=== PATIENT | male | born 1975 | race Caucasian/White ===

== ENCOUNTER 2020-06-13 04:55 | Emergency (ER) | payer OTHER ==
[~2020-06-13 04:55] MED LIST: ASPIRIN EC81 MG PO; BACTROBAN OINT22 GM EXT; CLARITIN10 MG PO; FUROSEMIDE40 MG PO; JANUVIA100 MG PO; K-DUR TAB 20 M20 MEQ PO; KEFLEX CAP 500500 MG PO; LIPITOR TAB 2020 MG PO; LOPRESSOR 25 MG25 MG PO; PRINIVIL20 MG PO; ZITHROMAX250 MG PO
[2020-06-13 05:49] LABS: HEMOGLOBIN 10.5 gm/dl (14.0-17.5); RED BLOOD COUNT 4.66 M/UL (4.20-5.50); WHITE BLOOD COUNT 7.1 K/UL (4.5-11.0)
[2020-06-13 06:03] LABS: BUN/CREATININE RATIO 12 (0-10)
[2020-06-13] MEDS ORDERED: PROTONIX 40 MG40 M1 PO (10:46)
== END 2020-06-13 11:44 | disposition home or self-care (01) ==
LOC: ER1 04:55
PROVIDERS: Family Medicine
DX: N13.2 Hydronephrosis with renal and ureteral calculous obstruction (principal); R10.13 Epigastric pain; I11.0 Hypertensive heart disease with heart failure; I50.9 Heart failure, unspecified; E11.9 Type 2 diabetes mellitus without complications; E66.01 Morbid (severe) obesity due to excess calories; Z79.899 Other long term (current) drug therapy; Z88.0 Allergy status to penicillin
CPT/HCPCS: 80053; 81001; 82550; 82553; 83690; 83874; 84484; 85025; 93005; 96374; 96375; 99284; J2270; J2405; Q9967

== ENCOUNTER 2020-10-25 10:17 | Inpatient (IN) | payer OTHER ==
[~2020-10-25] VITALS: Ht 177.8 cm; Wt 91.2 kg
[~2020-10-25 10:17] MED LIST changes: +PROTONIX 40 MG40 M1 PO
[2020-10-25 11:14] LABS: HEMOGLOBIN 9.7 gm/dl (14.0-17.5); RED BLOOD COUNT 4.12 M/UL (4.20-5.50); WHITE BLOOD COUNT 6.8 K/UL (4.5-11.0)
[2020-10-26 05:28] LABS: HEMOGLOBIN 8.3 gm/dl (14.0-17.5); WHITE BLOOD COUNT 8.5 K/UL (4.5-11.0)
[2020-10-26 05:48] LABS: RED BLOOD COUNT 3.56 M/UL (4.20-5.50)
--- NOTE | 2020-10-26 15:42 | NUR ---
Patient states he has to sleep in a recliner at home due to soa. He is requesting a hospital bed for home use.
[2020-10-27 05:11] LABS: HEMOGLOBIN 8.5 gm/dl (14.0-17.5); RED BLOOD COUNT 3.66 M/UL (4.20-5.50); WHITE BLOOD COUNT 8.9 K/UL (4.5-11.0)
[2020-10-28 04:29] LABS: HEMOGLOBIN 8.5 gm/dl (14.0-17.5); RED BLOOD COUNT 3.55 M/UL (4.20-5.50)
[2020-10-28 11:15] LABS: ANTISTREPTOLYSIN O AB <20.0 IU/mL (0.0-200.0); COMPLEMENT C3, SERUM 171 mg/dL (82-167); COMPLEMENT C4, SERUM 32 mg/dL (12-38); HBSAG SCREEN Negative (Negative); HEP B CORE AB, TOT Negative (Negative); HEP C VIRUS AB <0.1 (0.0-0.9)
[2020-10-28 14:11] LABS: ANTI-DSDNA ANTIBODIES <1 IU/mL (0-9)
[2020-10-28 15:11] LABS: A/G RATIO 0.6 (0.7-1.7); ALBUMIN 1.9 g/dL (2.9-4.4); ALPHA-1-GLOBULIN 0.5 g/dL (0.0-0.4); GAMMA GLOBULIN 1.1 g/dL (0.4-1.8); GLOBULIN, TOTAL 3.7 g/dL (2.2-3.9); IMMUNOGLOBULIN A, QN, SERUM 375 mg/dL (90-386); IMMUNOGLOBULIN G, QN, SERUM 1101 mg/dL (603-1613); IMMUNOGLOBULIN M, QN, SERUM 70 mg/dL (20-172); M-SPIKE 0.3 g/dL (Not Observed); PROTEIN, TOTAL, SERUM 5.6 g/dL (6.0-8.5)
[2020-10-28 16:11] LABS: ATYPICAL PANCA <1:20 titer (Neg:<1:20); CYTOPLASMIC (C-ANCA) <1:20 titer (Neg:<1:20); PERINUCLEAR (P-ANCA) <1:20 titer (Neg:<1:20)
[2020-10-30 05:15] LABS: HEMOGLOBIN 8.7 gm/dl (14.0-17.5); RED BLOOD COUNT 3.71 M/UL (4.20-5.50); WHITE BLOOD COUNT 6.9 K/UL (4.5-11.0)
[2020-10-31] MEDS ORDERED: HYDRALAZINE HCL50 MG PO (10:52)
[2020-10-31] MEDS ORDERED: BUMETANIDE1 MG PO (10:52)
[2020-10-31] MEDS ORDERED: ISOSORBIDE MONO60 MG PO (10:52)
[2020-10-31] MEDS ORDERED: FERROUS SULFAT325 M2 PO (10:52)
== END 2020-10-31 14:03 | disposition home or self-care (01) | DRG 291 ==
LOC: ER1 10:17 → PROG CARE 12:50 → CDU 12:50 → M/S 12:50 → PROG CARE 14:12 → M/S 10-28 00:35
PROVIDERS: Internal Medicine; Internal Medicine Nephrology; Physician Assistant; ADMIT Family Medicine
PROC: B24BZZ4 Ultrasonography of Heart with Aorta, Transesophageal (ICD-10-PCS; principal; 2020-10-26)
DX: I13.0 Hypertensive heart and chronic kidney disease with heart failure and stage 1 through stage 4 chronic kidney disease, or unspecified chronic kidney disease (principal); I50.33 Acute on chronic diastolic (congestive) heart failure; I16.1 Hypertensive emergency; N17.9 Acute kidney failure, unspecified; L03.116 Cellulitis of left lower limb; L03.115 Cellulitis of right lower limb; Z20.822 Contact with and (suspected) exposure to COVID-19; I89.0 Lymphedema, not elsewhere classified; D47.2 Monoclonal gammopathy; D50.9 Iron deficiency anemia, unspecified; N18.30 Chronic kidney disease, stage 3 unspecified; E66.01 Morbid (severe) obesity due to excess calories; I87.8 Other specified disorders of veins; I07.1 Rheumatic tricuspid insufficiency; D63.1 Anemia in chronic kidney disease; I49.5 Sick sinus syndrome; T44.5X5A Adverse effect of predominantly beta-adrenoreceptor agonists, initial encounter; E11.22 Type 2 diabetes mellitus with diabetic chronic kidney disease; M47.895 Other spondylosis, thoracolumbar region; M47.896 Other spondylosis, lumbar region; I27.20 Pulmonary hypertension, unspecified; E78.5 Hyperlipidemia, unspecified; Z79.82 Long term (current) use of aspirin; Z88.0 Allergy status to penicillin; Z79.4 Long term (current) use of insulin; Z91.14 Patient's other noncompliance with medication regimen; Z74.01 Bed confinement status; Z82.49 Family history of ischemic heart disease and other diseases of the circulatory system; Z68.28 Body mass index [BMI] 28.0-28.9, adult
CPT/HCPCS: 36415; 71045; 77075; 80048; 80053; 80202; 82550; 82553; 82570; 82728; 82784; 82962; 83036; 83520; 83540; 83550; 83880; 83883; 84155; 84156; 84165; 84484; 85025; 85027; 86038; 86060; 86160; 86162; 86225; 86256; 86334; 86335; 86704; 86706; 86708; 86803; 87340; 93005; 96374; 96375; 97110-GP-CQ; 97116-GP-CQ; 97161; 97530-GP-CQ; 99285; J0360; J1205; J1650; J1940; J1956; J3370; J7030; J7070; P9047; U0002

== ENCOUNTER 2020-11-24 12:51 | Emergency (ER) | payer OTHER ==
[~2020-11-24 12:51] MED LIST changes: +BUMETANIDE1 MG PO; +FERROUS SULFAT325 M2 PO; +HYDRALAZINE HCL50 MG PO; +ISOSORBIDE MONO60 MG PO
[2020-11-24 13:55] LABS: RED BLOOD COUNT 4.41 M/UL (4.20-5.50); WHITE BLOOD COUNT 6.5 K/UL (4.5-11.0)
== END 2020-11-24 19:45 | disposition home or self-care (01) ==
LOC: ER1 12:51
PROVIDERS: Physician Assistant Medical
DX: N50.89 Other specified disorders of the male genital organs (principal); M54.5 Low back pain; E11.9 Type 2 diabetes mellitus without complications; I11.0 Hypertensive heart disease with heart failure; I50.20 Unspecified systolic (congestive) heart failure; Z79.899 Other long term (current) drug therapy; Z88.0 Allergy status to penicillin
CPT/HCPCS: 71045; 76870; 80053; 81001; 83605; 83880; 85025; 87040; 96374; 99284

== ENCOUNTER → 2021-02-10 | Outpatient (CLI) | payer OTHER | LOC: WCC 14:15 | DX: I87.323 Chronic venous hypertension (idiopathic) with inflammation of bilateral lower extremity (principal); I89.0 Lymphedema, not elsewhere classified; E11.42 Type 2 diabetes mellitus with diabetic polyneuropathy; E11.628 Type 2 diabetes mellitus with other skin complications; I11.0 Hypertensive heart disease with heart failure; I50.9 Heart failure, unspecified; R60.0 Localized edema; E66.01 Morbid (severe) obesity due to excess calories; Z68.43 Body mass index [BMI] 50.0-59.9, adult; Z88.0 Allergy status to penicillin; Z79.82 Long term (current) use of aspirin; Z79.84 Long term (current) use of oral hypoglycemic drugs ==

== ENCOUNTER 2021-03-10 15:38 | Emergency (ER) | payer OTHER ==
[2021-03-10 16:43] LABS: RED BLOOD COUNT 4.28 M/UL (4.20-5.50); WHITE BLOOD COUNT 7.1 K/UL (4.5-11.0)
[2021-03-10 17:07] LABS: BUN/CREATININE RATIO 15 (0-10)
[2021-03-10] MEDS ORDERED: LOPRESSOR 50 MG50 MG PO (21:24)
== END 2021-03-11 00:45 | disposition home or self-care (01) ==
LOC: ER1 15:38
PROVIDERS: Physician Assistant
DX: I13.0 Hypertensive heart and chronic kidney disease with heart failure and stage 1 through stage 4 chronic kidney disease, or unspecified chronic kidney disease (principal); E11.22 Type 2 diabetes mellitus with diabetic chronic kidney disease; N18.9 Chronic kidney disease, unspecified; I50.9 Heart failure, unspecified; E78.5 Hyperlipidemia, unspecified; R59.1 Generalized enlarged lymph nodes
CPT/HCPCS: 71045; 80053; 82550; 82553; 83874; 84484; 85025; 93005; 99284; J0360

== ENCOUNTER 2021-07-22 18:19 | Inpatient (IN) | payer OTHER ==
[~2021-07-22] VITALS: Ht 177.8 cm; Wt 260.8 kg
[~2021-07-22 18:19] MED LIST changes: +AMLODIPINE BESYL5 MG PO; -LIPITOR TAB 2020 MG PO; +LOPRESSOR 50 MG50 MG PO; +METOPROLOL TART50 MG PO; +NITROSTAT0.4 MG SL; +POTASSIUM CHLO20 ME1 PO
[2021-07-22 19:46] LABS: RED BLOOD COUNT 3.99 M/UL (4.20-5.50); WHITE BLOOD COUNT 9.2 K/UL (4.5-11.0)
[2021-07-23 05:24] LABS: HEMOGLOBIN 10.6 gm/dl (14.0-17.5); RED BLOOD COUNT 3.87 M/UL (4.20-5.50)
[2021-07-23 05:35] LABS: WHITE BLOOD COUNT 14.8 K/UL (4.5-11.0)
[2021-07-23] MEDS ORDERED: AMLODIPINE BESYL5 MG PO (08:55)
[2021-07-23] MEDS ORDERED: ISOSORBIDE MONO60 MG PO (09:00)
[2021-07-23 10:47] LABS: ACINETOBACTER BAUMANNII Not Detected (Negative); CANDIDA ALBICANS Not Detected (Negative); CANDIDA KRUSEI Not Detected (Negative); CANDIDA TROPICALIS Not Detected (Negative); ENTEROCOCCUS Not Detected (Negative); ESCHERICHIA COLI Not Detected (Negative); HAEMOPHILUS INFLUENZAE Not Detected (Negative); KLEBSIELLA OXYTOCA Not Detected (Negative); KLEBSIELLA PNEUMONIAE Not Detected (Negative); KPC-CARBAPENEM-RESISTANCE GENE Not Detected (Negative); PROTEUS Not Detected (Negative); PSEUDOMONAS AERUGINOSA Not Detected (Negative); SERRATIA MARCESANS Not Detected (Negative); STREP AGALACTIAE (GROUP B) Not Detected (Negative); STREP PYOGENES (GROUP A) Not Detected (Negative); STREPTOCOCCUS Not Detected (Negative); vanA/B (VANCOMYCIN RESIST GENE Not Detected (Negative)
[2021-07-23 10:51] LABS: STAPHYLOCOCCUS DETECTED (Negative); STAPHYLOCOCCUS AUREUS DETECTED (Negative); mecA (METHICILLIN RESIST GENE DETECTED (Negative)
[2021-07-23] MEDS ORDERED: LIPITOR TAB 2020 MG PO (13:19)
[2021-07-24 03:44] LABS: HEMOGLOBIN 9.1 gm/dl (14.0-17.5)
[2021-07-24 03:47] LABS: RED BLOOD COUNT 3.3 M/UL (4.20-5.50); WHITE BLOOD COUNT 9.2 K/UL (4.5-11.0)
[2021-07-25 04:20] LABS: HEMOGLOBIN 9.9 gm/dl (14.0-17.5); RED BLOOD COUNT 3.6 M/UL (4.20-5.50); WHITE BLOOD COUNT 7.3 K/UL (4.5-11.0)
== END 2021-07-25 15:05 | disposition expired | DRG 193 ==
LOC: ER1 18:19 → CDU 22:48 → PROG CARE 07-23 15:27
PROVIDERS: Internal Medicine; Internal Medicine Nephrology; Physician Assistant; ADMIT Internal Medicine
PROC: B24BZZZ Ultrasonography of Heart with Aorta (ICD-10-PCS; 2021-07-23)
PROC: 5A12012 Performance of Cardiac Output, Single, Manual (ICD-10-PCS; principal; 2021-07-25)
PROC: 3E033XZ Introduction of Vasopressor into Peripheral Vein, Percutaneous Approach (ICD-10-PCS; 2021-07-25)
PROC: 0BH17EZ Insertion of Endotracheal Airway into Trachea, Via Natural or Artificial Opening (ICD-10-PCS; 2021-07-25)
DX: J18.9 Pneumonia, unspecified organism (principal); I50.33 Acute on chronic diastolic (congestive) heart failure; N17.0 Acute kidney failure with tubular necrosis; I13.0 Hypertensive heart and chronic kidney disease with heart failure and stage 1 through stage 4 chronic kidney disease, or unspecified chronic kidney disease; E66.2 Morbid (severe) obesity with alveolar hypoventilation; R78.81 Bacteremia; Z68.45 Body mass index [BMI] 70 or greater, adult; I46.2 Cardiac arrest due to underlying cardiac condition; Z20.822 Contact with and (suspected) exposure to COVID-19; N18.30 Chronic kidney disease, stage 3 unspecified; M54.50 Low back pain, unspecified; I16.0 Hypertensive urgency; E11.22 Type 2 diabetes mellitus with diabetic chronic kidney disease; E78.5 Hyperlipidemia, unspecified; Z98.890 Other specified postprocedural states; Z88.0 Allergy status to penicillin; Z83.3 Family history of diabetes mellitus; Z82.49 Family history of ischemic heart disease and other diseases of the circulatory system; D47.2 Monoclonal gammopathy; I27.20 Pulmonary hypertension, unspecified; I87.8 Other specified disorders of veins
CPT/HCPCS: ECHO; 31500; 36415; 71045; 80053; 80202; 81001; 82550; 82553; 82962; 83605; 83690; 83735; 83874; 83880; 84484; 85025; 85027; 86140; 87040; 87077; 87150; 87186; 92950; 93306; 94640; 94664; 94760; 96374; 96375; 96376; 99285; C9113; G0378; J0171; J0456; J0692; J1650; J2405; J2550; J3370; J7030; J7050; J7070; P9047; Q9957; U0002